=== PATIENT | female | born 1965 | race Caucasian/White ===

== ENCOUNTER → 2020-01-30 11:04 | Outpatient (CLI) | payer OTHER, SELFPAY ==
--- NOTE | ~2020-01-30 | DEXA_ITS ---
Bone Density Report Name: Martha Jackson Age: 54 Sex: Female Ethnicity: White Date of : 1965 Indication: postmenopausal; screening for osteoporosis; Referring Provider: HERNESTO OATES Study: Bone densitometry was performed. Exam Date: January 30, 2020 Accession number: [id number] Bone Density: Region BMD T-score Z-score Classification AP Spine (L1-L4) 1.065 0.2 1.1 Normal Femoral Neck (Left) 0.863 0.1 1.1 Normal Total Hip (Left) 1.095 1.3 1.9 Normal Femoral Neck (Right) 0.853 0.0 1.0 Normal Total Hip (Right) 1.011 0.6 1.2 Normal Total Hip Mean 1.053 1.0 1.6 Normal World Health Organization criteria for BMD impression classify patients as: Normal (T-score at or above -1.0), Osteopenia (T-score between -1.0 and -2.5), or Osteoporosis (T-score at or below -2.5). 10-year Fracture Risk: FRAX not reported because: All T-scores for Spine Total, Hip Total, Femoral Neck at or above -1.0 Clinical Information Provided by Patient: Smokes Has used the following medications: Vitamin D Patient maximum height was 67 Menopause Age: 53 Drinks caffeinated beverages Onset of menses at age 13 Number of children 2 Impression: The patient has normal bone mass. The patient has risk factors, including: smoking. Discussion: BONE DENSITY IS ABOVE THE MINIMUM DESIRABLE LEVEL AT ALL SKELETAL SITES TESTED. This patient?s bone mineral density is above the minimum desirable level (T-score -1.0 or better) at all sites measured. The patient should follow a healthful lifestyle (good nutrition with adequate calcium and vitamin D, and appropriate weight-bearing exercise). Follow-Up: Consider repeating this study in 5 years or sooner if there is some new clinical indication. Reported by: [facility] on 01/30/2020 11:37:00 AM. Reviewed, dictated and finalized at location AMaryan LYLE
--- NOTE | ~2020-01-30 | MM_ITS ---
EXAMINATION: MM screening contra [facility] BI w serafin HISTORY: Screening mammogram TECHNIQUE: Craniocaudal and mediolateral oblique 3-D tomosynthesis images were obtained and synthetic 2-D images were generated. CAD analysis was submitted and interpreted. COMPARISON: 09/13/2018, 08/20/2017, 04/15/2015 BREAST PARENCHYMAL COMPOSITION: There are scattered areas of fibroglandular density. FINDINGS: There is no evidence of suspicious mass, calcification, or architectural distortion to sugg est malignancy in either breast. There has been no suspicious interval change. IMPRESSION: 1. No mammographic evidence of malignancy. 2. Recommend routine screening mammography in one year. BI-RADS Category 1: Negative Reviewed, dictated and finalized at location A.
== END ==
PROVIDERS: PCP Internal Medicine; Referring Provider Nurse Practitioner Family; Visit Provider Obstetrics & Gynecology Gynecology
DX: Z12.31 Encounter for screening mammogram for malignant neoplasm of breast (principal); Z13.820 Encounter for screening for osteoporosis; Z78.0 Asymptomatic menopausal state
CPT/HCPCS: 77063; 77067; 77080

== ENCOUNTER 2020-03-16 09:26 | Outpatient (CLI) | payer OTHER, SELFPAY ==
--- NOTE | ~2020-03-16 | US_ITS ---
EXAMINATION: US abdomen complete EXAM DATE: 03/16/2020 10:17 INDICATION: R10.9 - Unspecified abdominal pain abdominal pain , LLQ. TECHNIQUE: Multiple grayscale and Doppler images of the complete abdomen were obtained (by a technolo gist who performed the scan) and subsequently reviewed. There is no prior study for comparison. FINDINGS: The abdominal aorta is normal in caliber. Visualized portion IVC is patent. The pancreatic head a nd body are normal in appearance. The pancreatic tail is not visualized. The liver has normal echogenicity and contour. There is a 1.4 cm cyst in the liver inferiorly. Ther e is no evidence of intrahepatic biliary duct dilation. Portal venous flow was seen in the hepatoped al, normal direction and has normal Doppler waveform. Common bile duct measures 3 mm, which is normal. The gallbladder wall is normal in thickness, with ex pected amount of distention. No sonographic evidence of pericholecystic fluid. There is a 13 mm gall stone. Technologist performing exam reports patient did not demonstrate sonographic Jennings's sign. P phill note that this sign is less reliable in patients who have received pain medication. Right kidney: There is normal contour and echogenicity. It measures 12.2 x 4.6 x 4.1 centimeters. There are no focal renal lesions identified. There is no hydronephrosis. Left kidney: There is normal contour and echogenicity. It measures 11.9 x 5.1 x 5.5 centimeters. T here are no focal renal lesions identified. There is no hydronephrosis. The spleen measures 9.7 centimeters and is morphologically normal. Scanning performed in the left lower quadrant, location of patient's pain which demonstrated soft tis leeroy structure measuring 1.3 x 1.9 x 1.4 cm which technologist believed to be left ovary. No evidence of abdominal wall defect in this location. IMPRESSION: Unremarkable complete abdominal ultrasound exam. Reviewed, dictated and finalized at location A. 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
== END 2020-03-16 09:27 | disposition home or self-care (01) ==
PROVIDERS: PCP Internal Medicine; Visit Provider Nurse Practitioner
DX: R10.9 Unspecified abdominal pain (principal)
CPT/HCPCS: 76700

== ENCOUNTER 2020-07-10 15:12 | Emergency (ER) | payer OTHER, SELFPAY ==
[2020-07-10] VITALS (7 sets, daily range): BP systolic 113–138; BP diastolic 76–99; PULSE 75–90; RESP 15–20; TEMP 36.6; O2SAT 88–100
--- NOTE | ~2020-07-10 | CT_ITS ---
EXAMINATION: CT abdomen pelvis w con DATE: 07/10/2020 15:55 INDICATION: Right upper quadrant pain TECHNIQUE: Computed tomography (CT) of the abdomen and pelvis was performed without intravenous contr ast. The dose-length product was 728.69 mGy-cm. Automated exposure control and iterative reconstructi on technique were employed. COMPARISON: None. FINDINGS: Lung bases are unremarkable. Heart size normal. No pleural or pericardial effusion. There a re multiple low-density lesions in the liver, likely benign cysts. The spleen, pancreas, adrenal glan ds and kidneys are unremarkable. Gallbladder is contracted with enhancement and surrounding perichole cystic fluid, suspicious for cholecystitis. Nonobstructive bowel gas pattern. Normal appendix. IUD pr esent in the endometrium. No free air. No lymphadenopathy. No significant vascular abnormality. Mild lower lumbar spondylosis. IMPRESSION: 1. Enhancing gallbladder wall with pericholecystic fluid, suspicious for cholecystitis. Correlate cli nically. Reviewed, dictated and finalized at location A. 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 Enhancing gallbladder wall with pericholecystic fluid, suspicious for cholec ystitis. Correlate clinically.
--- NOTE | ~2020-07-10 | XR_ITS ---
EXAMINATION: XR chest 2V 07/10/2020 15:39 INDICATION: Left-sided chest pain PROCEDURE: PA and lateral views of the chest COMPARISON: No prior studies for comparison. FINDINGS: The lungs are clear. The cardiomediastinal silhouette is within normal limits. There are no pleural effusions. There is no pneumothorax suspected. IMPRESSION: 1: NO ACUTE CARDIOPULMONARY DISEASE. Reviewed, dictated and finalized at location A. L TILE SETTER
--- NOTE | 2020-07-10 15:20 | ED.CHESTPAIN ---
HPI - Chest Pain General Chief Complaint: Chest Pain Stated Complaint: chest pain Time Seen by Provider: 07/10/20 15:19 History of Present Illness HPI narrative: 55 yo female with no active medical problems presents to the ED for chest and abdominal pain. She had 2 episodes of severe RUQ pain radiating into the chest and back. The first was last night and the pain returned this morning. Currently only 3/10. She has never had this pain before. No SOB, fever, cough, vomiting, diarrhea. She has had no previous surgery. Related Data Home Medications Medication Instructions Recorded Confirmed hydroxyzine HCl 25 mg tablet 25 mg PO BID PRN 01/28/20 05/05/20 cholecalciferol (vitamin D3) 25 25 mcg PO DAILY 05/05/20 05/05/20 mcg (1,000 unit) capsule Allergies Allergy/AdvReac Type Severity Reaction Status Date / Time adhesive Allergy Intermediate BANDAIDS, Verified 05/05/20 12:59 DENIES LATEX, USES LATEX GLOVES REDNESS WITH PALACIOS Review of Systems Review of Systems: All systems reviewed & are unremarkable except as noted in HPI and below Constitutional: Constitutional: Denies fever(s) and Denies weakness Eyes: Eyes: Reports no additional eye complaints ENT: Reports system reviewed and no additional complaints, except as documented Cardiovascular: Cardiovascular: Reports chest pain Respiratory: Respiratory: Denies dyspnea Gastrointestinal: Gastrointestinal: Reports abdominal pain, Denies diarrhea, Reports nausea and Denies vomiting Genitourinary: Genitourinary: Denies hematuria and Denies dysuria Musculoskeletal: Musculoskeletal: Reports back pain Neurologic: Reports system reviewed and no additional complaints, except as documented [facility] Past Medical History Medical History Chicken pox Hyperlipidemia Mumps Vitamin D deficiency Surgical History Surgical History [place] teeth extracted Family History Family History Father Family history of elevated blood lipids Acute myocardial infarction Social History Social History Smoking packs per day: 0.5 Smoking cigarettes per day: 10.0 Smoking status: Current every day smoker Second hand tobacco smoke exposure: Yes Alcohol intake: current Exam Const: General: healthy appearing, no acute distress and alert Orientation/consciousness: patient oriented x3 HENMT: Head: normal to inspection Neck: Neck: normal visual inspection and no lymphadenopathy Chest: Chest palpation & inspection: no tenderness Resp: Effort & Inspection: normal respiratory effort Auscultation: clear to auscultation bilaterally, no rales, no rhonchi and no wheezes Cardio: Jugular venous distension: no JVD Rate: regular rate Rhythm: regular rhythm Heart sounds: no murmurs GI: Inspection: non-distended GI Palp: Yes Soft to palpation, Yes Tenderness to palpation present (GI) (RUQ ), No Guarding due to palpation present (GI) and No Rebound tenderness present Skin: General skin exam: normal color Neuro: General: patient oriented x3, moves all extremities, no focal motor deficits and CN's II-XI intact bilaterally Speech: normal speech Extrem: General: no edema Psych: Appearance: well kempt Affect: normal affect Course Vital Signs Vital signs: Vital Signs Temperature 36.6 C 07/10/20 15:18 Pulse Rate 89 07/10/20 15:18 Respiratory Rate 17 07/10/20 15:18 Blood Pressure 113/99 H 07/10/20 15:18 Pulse Oximetry 97 07/10/20 15:18 Temperature 36.6 C 07/10/20 15:18 Pulse Rate 84 07/10/20 17:40 Respiratory Rate 16 07/10/20 17:40 Blood Pressure 138/76 07/10/20 17:40 Pulse Oximetry 99 07/10/20 17:40 MDM - Chest Pain MDM Narrative Medical decision making narrative: symptoms most
--- NOTE | 2020-07-10 15:22 | ECG_ITS ---
Measurements Intervals [place] Rate: 86 P: 71 W[place]: 137 QRS: 66 QRSD: 93 T: 53 QT: 326 QTc: 391 Interpretive Statements SINUS RHYTHM BORDERLINE ST-T WAVE ABNORMALITY- DIFFUSE LEADS BASELINE ARTIFACT- I, II, III, AVR, AVL, AVF BORDERLINE ECG Electronically Signed On 07-10-2020 15:50:16 OUTREACH CONSULTANT by Joni Glasgow D.O.
[2020-07-10 15:32] LABS: Basophils Absolute Auto 0.1 K/mm3 (0.0-0.1); Basophils Percent Auto 0.8 % (0.2-1.2); Eosinophils Absolute Auto 0.2 K/mm3 (0-0.3); Eosinophils Percent Auto 2.7 % (0-4.4); Hematocrit 45.9 % (37.0-47.0); Hemoglobin 15.8 g/dL (12.0-15.0); Immature Granulocyte Absolute 0.01 K/mm3 (0.00-0.031); Immature Granulocyte Percent A 0.1 % (0-0.5); Lymphocytes Absolute Auto 2.94 K/mm3 (0.9-3.2); Lymphocytes Percent Auto 34.8 % (18.3-44.2); Mean Corpuscular HGB Conc 34.4 g/dl (32-36); Mean Corpuscular Hemoglobin 32.6 pg (26-34); Mean Corpuscular Volume 94.8 fl (80-100); Mean Platelet Volume 9.6 fl (7.4-10.4); Monocytes Absolute Auto 0.4 K/mm3 (0.1-0.6); Monocytes Percent Auto 5.2 % (2.6-8.5); Neutrophils Absolute Auto 4.8 K/mm3 (1.3-6.7); Neutrophils Percent Auto 56.4 % (45.5-73.1); Platelet Count Result 285 k/mm3 (150-375); Red Blood Count 4.84 M/mm3 (4.2-5.4); Red Cell Distribution Width 12.3 % (11.5-14.5); White Blood Count 8.4 K/mm3 (4.5-10.0)
[2020-07-10 15:42] LABS: INR 0.9; Prothrombin Time 12.6 Seconds (11.1-14.7)
[2020-07-10 15:43] LABS: Partial Thromboplastin Time 28.7 SECONDS (22.3-36.8)
[2020-07-10 15:45] LABS: Anion Gap 5 mmol/L (8-16); Blood Urea Nitrogen 9 mg/dL (7-17); Calcium 9.5 mg/dL (8.4-10.2); Carbon Dioxide 31 mmol/L (22-30); Chloride 107 mmol/L (98-107); Estimated Glomerular Filt Rate > 60; Glucose 93 mg/dL (65-105); Potassium 3.8 mmol/L (3.4-5.0); Sodium 143 mmol/L (137-145)
[2020-07-10 15:58] LABS: Troponin I < 0.012 ng/mL (0.000-0.034)
[2020-07-10 16:13] LABS: Alanine Aminotransferase 16 U/L (4-35); Albumin Level 4.4 g/dL (3.5-5.1); Alkaline Phosphatase 68 U/L (38-126); Aspartate Amino Transferase 23 U/L (14-36); Bilirubin,Total 0.4 mg/dL (0.2-1.3); Lipase 175 U/L (23-300)
[2020-07-12 01:20] LABS: Estimated Glomerular Filt Rate > 60
== END 2020-07-10 17:51 | disposition home or self-care (01) ==
PROVIDERS: Emergency Provider Emergency Medicine; PCP Internal Medicine
DX: E78.5 Hyperlipidemia, unspecified (principal); E55.9 Vitamin D deficiency, unspecified; F17.210 Nicotine dependence, cigarettes, uncomplicated; K81.0 Acute cholecystitis; R94.31 Abnormal electrocardiogram [ECG] [EKG]
CPT/HCPCS: 36415; 71046; 74177; 80048; 80076; 83690; 84484; 85025; 85610; 85730; 93005; 99284; Q9967

== ENCOUNTER → 2020-07-27 00:30 | Outpatient (CLI) | payer OTHER, SELFPAY ==
[2020-07-27 18:31] LABS: SARS-CoV-2 RNA PCR Negative
== END ==
PROVIDERS: PCP Internal Medicine; Visit Provider Surgery
DX: Z01.812 Encounter for preprocedural laboratory examination (principal); Z20.822 Contact with and (suspected) exposure to COVID-19
CPT/HCPCS: C9803; U0003; U0005

== ENCOUNTER 2020-07-27 08:28 | Outpatient (CLI) | payer OTHER, SELFPAY ==
[2020-07-27 09:36] LABS: Alanine Aminotransferase 15 U/L (4-35); Albumin Level 4.4 g/dL (3.5-5.1); Alkaline Phosphatase 63 U/L (38-126); Amylase 82 U/L (30-110); Aspartate Amino Transferase 21 U/L (14-36); Bilirubin,Total 0.3 mg/dL (0.2-1.3); Lipase 185 U/L (23-300)
== END 2020-07-27 08:29 | disposition home or self-care (01) ==
PROVIDERS: PCP Internal Medicine; Visit Provider Surgery
DX: Z01.812 Encounter for preprocedural laboratory examination (principal); K80.10 Calculus of gallbladder with chronic cholecystitis without obstruction
CPT/HCPCS: 36415; 80076; 82150; 83690; 86850; 86900; 86901

== ENCOUNTER 2020-07-30 04:18 | Day surgery (SDC) | payer OTHER, SELFPAY ==
[2020-07-20 09:22] VITALS: BMI 29.3
[2020-07-30] VITALS (10 sets, daily range): BP systolic 91–115; BP diastolic 45–65; PULSE 64–90; RESP 14–20; TEMP 36.1–36.5; O2SAT 99–100
--- NOTE | 2020-07-30 06:35 | WPDHPUPDATE1 ---
History and Physical Update Update Date/Time: 07/30/20 06:35 History and Physical has been reviewed, including an updated exam of the patient. There are NO changes in the patient's condition. Risks, benefits, and alternatives have been discussed and questions answered. Patient agrees to proceed with procedure.
--- NOTE | 2020-07-30 08:17 | ECG_ITS ---
Measurements Intervals [place] Rate: 85 P: NC: 0 QRS: 65 QRSD: 93 T: 55 QT: 304 QTc: 363 Interpretive Statements ECTOPIC ATRIAL RHYTHM CHANGES TO SINUS RHYTHM NONSPECIFIC T-WAVE ABNORMALITY- HIGH LATERAL LEADS BASELINE ARTIFACT- I, II, III, AVR, AVL, AVF ABNORMAL ECG Electronically Signed On 07-30-2020 9:31:17 CDT by Joni Glasgow D.O.
[2020-07-30] MEDS: LACTATED RINGERS 1,000 ML 30 ML IV CONT ×2 (08:35→11:04)
[2020-07-30] MEDS: KETOROLAC 15 MG/ML VIAL (*BKC) IV PUSH (08:39)
[2020-07-30] MEDS: ACETAMINOPHEN 500 MG TABLET 1000 MG PO (08:40)
--- NOTE | 2020-07-30 09:32 | WPDANESEPPF ---
Anes - Initial Pre Proc Eval Procedure: Operation Date: 07/30/20 10:00 Proposed Procedures p Laparoscopic Cholecystectomy - Owen Orozco MD Date/Time: 07/30/20 09:32 Surgeon: Owen Orozco MD Pre Op Diagnosis: chronic cholecystitis with stones Patient Data Age: 55 Gender: F Height: 5 ft 7 in Weight: 85.4 kg Last Vital Signs Temp 36.5 C 07/30/20 08:50 Pulse 84 07/30/20 08:50 Resp 20 07/30/20 08:50 BP 112/65 07/30/20 08:50 Pulse Ox 100 07/30/20 08:50 Allergies Allergy/AdvReac Type Severity Reaction Status Date / Time adhesive Allergy Intermediate BANDAIDS, Verified 07/30/20 08:48 DENIES LATEX, USES LATEX GLOVES REDNESS WITH PALACIOS Home Medications Medication Instructions Recorded Confirmed Type cholecalciferol (vitamin D3) 25 25 mcg PO DAILY 05/05/20 07/30/20 History mcg (1,000 unit) capsule hydrocodone-acetaminophen 1 tablet PO Q6H PRN #10 tablet 07/10/20 07/20/20 Rx trazodone 50 mg tablet 50 mg PO QHS PRN 07/12/20 07/20/20 History Patient hx anesthesia problems: none Family hx anesthesia problems: none PMFSH Past Medical History Medical History Chicken pox Hyperlipidemia Mumps Vitamin D deficiency Surgical History Surgical History [place] teeth extracted Family History Family History Father Family history of elevated blood lipids Acute myocardial infarction Heart attack Sibling Autoimmune disease Grandparent Cerebrovascular accident Social History Social History Smoking packs per day: 0.5 Smoking cigarettes per day: 10.0 Years smoked: 30 Smoking pack-years: 15.00 Smoking status: Current every day smoker Tobacco type: cigarettes Second hand tobacco smoke exposure: Yes Alcohol intake: current Alcohol use details: 2-3 GLASSES/MONTH Substance use: never Substance use type: does not use Living arrangements: with family Gender identity (if verbalized by the patient): Female Spiritual care concerns: No Anes - Eval Final PreProcedure Day of Procedure 07/30/20 09:32 Patient weight: overweight Heart: regular rate and rhythm Lungs: decreased breath sounds Airway: Mallampati scale class II Neurological: alert and oriented Last oral intake: >/= 8 hours ASA classification: III Emergent: no Anesthetic plan: proceed Anesthesia type and monitoring: general ETT and standard monitoring Informed Consent: The patient's anesthetic plan and its attendant risks and benefits were discussed with the patient/family/POA. Questions were solicited and answers provided to the satisfaction of the patient/family/POA.
[2020-07-30] MEDS: ceFAZolin 2 GM/D5W 50 ML 2 GM/50 ML BAG IVPB (10:09)
[2020-07-30] MEDS: BUPIVACAINE/EPINEPHRINE 0.5% 30 ML VIAL INFILTRATE (10:40)
--- NOTE | 2020-07-30 11:14 | PM.PROC ---
Procedure Note - Detailed Date of procedure: 07/30/20 Pre-op diagnosis: chronic cholecystitis with stones Chronic cholecystitis, cholelithiasis Post-op diagnosis: same Procedure performed: Laparoscopic cholecystectomy Description of procedure: The patient was taken to surgery and induced into general anesthesia. The abdomen was prepped and draped. Trocars were placed in the usual fashion using 0.5% Marcaine with epinephrine and applied Medical optical trocars. A 5 millimeter camera was used. The gallbladder was retracted anterosuperiorly. Adhesions to the gallbladder were taken down so that the cholecystohepatic triangle was exposed. Traction was placed on the infundibulum. The cystic duct and cystic artery were dissected out very clearly. The gallbladder was dissected off the liver at its lower 3rd. Critical view was achieved. We securely clipped and divided the cystic duct and cystic artery. The gallbladder was then further retracted so that the peritoneal attachments to the liver could be divided. Once the gallbladder was freed entirely, it was placed in an Endo-Catch bag and retrieved through the 10 11 epigastric trocar site. The epigastric trocar was then replaced. We reviewed the right upper quadrant. All looked good with no evidence of bleeding or bile leakage. We evacuated CO2 and removed the trocar sleeves. Skin wounds were closed with subcuticular 4 O Monocryl skin suture. The wounds were dressed with Exofin surgical adhesive. Patient was awakened and taken to recovery in good condition. Sponge and needle counts were correct x2. Anesthesia: GETA and local (0.5% Marcaine with epinephrine) Surgeon: Owen Orozco MD Flanging Machine Operator: Richard JAIN Estimated blood loss (mL): 5 Drains: No Packing: No Pathology: yes (Gallbladder) Complications: None Condition: stable Disposition: PACU Findings: Chronic inflammation, gallstones noted. No biliary ductal dilatation, no liver abnormalities.
[2020-07-30] MEDS: fentaNYL CITRATE INJ (*CRX) 100 MCG/2 ML VIAL 25 MCG IV PUSH ×4 (11:26→11:49)
== END 2020-07-30 13:47 | disposition home or self-care (01) ==
PROVIDERS: PCP Internal Medicine; Visit Provider Surgery
PROC: 0FT44ZZ Resection of Gallbladder, Percutaneous Endoscopic Approach (ICD-10-PCS; CPT 47562; principal; 2020-07-30 10:00)
DX: K81.1 Chronic cholecystitis (principal); E78.5 Hyperlipidemia, unspecified; E55.9 Vitamin D deficiency, unspecified; Z86.19 Personal history of other infectious and parasitic diseases; F17.210 Nicotine dependence, cigarettes, uncomplicated
CPT/HCPCS: 47562; 36415; 80076; 82150; 83690; 86850; 86900; 86901; 88304; 93005; A9270; C1713; C9803; J0690; J1100; J1170; J1885; J2250; J2370; J2405; J2704; J2710; J3010; J7030; J7120; U0003; U0005

== ENCOUNTER → 2021-01-31 15:01 | Outpatient (CLI) | payer OTHER, SELFPAY ==
--- NOTE | ~2021-01-31 | MM_ITS ---
EXAMINATION: MM screening [facility] BI w serafin HISTORY: Screening mammogram TECHNIQUE: Craniocaudal and mediolateral oblique 3-D tomosynthesis images were obtained and synthetic 2-D images were generated. CAD analysis was submitted and interpreted. COMPARISON: 01/30/2020, 09/13/2018, 08/20/2017 BREAST PARENCHYMAL COMPOSITION: There are scattered areas of fibroglandular density. FINDINGS: There is no evidence of suspicious mass, calcification, or architectural distortion to sugg est malignancy in either breast. There has been no suspicious interval change. IMPRESSION: 1. No mammographic evidence of malignancy. 2. Recommend routine screening mammography in one year. BI-RADS Category 1: Negative Reviewed, dictated and finalized at location A.
== END ==
PROVIDERS: PCP Internal Medicine; Visit Provider Nurse Practitioner
DX: Z12.31 Encounter for screening mammogram for malignant neoplasm of breast (principal)
CPT/HCPCS: 77063; 77067

== ENCOUNTER 2021-08-18 14:01 | Outpatient (CLI) | payer OTHER, SELFPAY ==
--- NOTE | ~2021-08-18 | XR_ITS ---
EXAMINATION: XR knee RT min 4V DATE: 08/18/2021 14:32 INDICATION: Right knee pain. TECHNIQUE: 4 views of right knee including standing views were obtained. COMPARISON: None. FINDINGS: Bone alignment is normal. No fracture. There is mild osteoarthritis of medial and patellofe moral compartments characterized by tiny osteophytes. No joint space narrowing. No knee joint effusio n. IMPRESSION: 1. Mild right knee osteoarthritis. Reviewed, dictated and finalized at location B.
== END 2021-08-18 14:02 | disposition home or self-care (01) ==
PROVIDERS: PCP Internal Medicine; Visit Provider Nurse Practitioner
DX: M17.11 Unilateral primary osteoarthritis, right knee (principal)
CPT/HCPCS: 73564

== ENCOUNTER 2021-09-07 10:03 | Outpatient (CLI) | payer OTHER, SELFPAY ==
--- NOTE | 2021-09-07 11:15 | NEURO_ITS ---
Impression: # Complains of pain in elbow. # No Carpal Tunnel Syndrome. # Left ulnar neuropathy across the elbow. # Normal needle/EMG exam. # Clinical correlation recommended. Nerve Conduction Studies Anti Sensory Summary Table Stim Site NR Peak (ms) P-T Amp (?V) Site1 Site2 Delta-P (ms) Dist (cm) Delta (m/s) Left Median Anti Sensory (2-3nd Digit) Wrist 2.4 83.8 Wrist 2-3nd Digit 2.4 14.0 58 Wrist 2.5 78.2 Wrist 2-3nd Digit 2.4 14.0 58 Right Median Anti Sensory (2-3nd Digit) Wrist 2.5 93.3 Wrist 2-3nd Digit 2.5 14.0 56 Wrist 2.3 94.0 Wrist 2-3nd Digit 2.5 14.0 56 Left Radial Anti Sensory (Base 1st Digit) Wrist 2.0 24.6 Wrist Base 1st Digit 2.0 0.0 Right Radial Anti Sensory (Base 1st Digit) Wrist 1.9 35.3 Wrist Base 1st Digit 1.9 0.0 Left Ulnar Anti Sensory (5th Digit) Wrist 2.4 64.5 Wrist 5th Digit 2.4 14.0 58 Right Ulnar Anti Sensory (5th Digit) Wrist 2.1 64.3 Wrist 5th Digit 2.1 14.0 67 Motor Summary Table Stim Site NR Onset (ms) O-P Amp (mV) Site1 Site2 Delta-0 (ms) Dist (cm) Delta (m/s) Left Median Motor (Abd Poll Brev) Wrist 2.7 4.8 Elbow Wrist 4.6 28.0 61 Elbow 7.3 3.0 Right Median Motor (Abd Poll Brev) Wrist 2.8 5.3 Elbow Wrist 4.2 25.0 60 Elbow 7.0 3.7 Left Ulnar Motor (Abd Dig Minimi) Wrist 2.2 5.9 A Elbow Wrist 5.5 28.0 51 A Elbow 7.7 4.1 B Elbow Wrist 4.1 23.0 56 B Elbow 6.3 4.9 Right Ulnar Motor (Abd Dig Minimi) Wrist 2.2 6.1 A Elbow Wrist 4.8 28.0 58 A Elbow 7.0 4.5 F Wave Studies NR F-Lat (ms) L-R F-Lat (ms) Left Median (Mrkrs) (Abd Poll Brev) 24.59 1.32 Right Median (Mrkrs) (Abd Poll Brev) 25.91 1.32 Left Ulnar (Mrkrs) (Abd Dig Min) 25.36 1.17 Right Ulnar (Mrkrs) (Abd Dig Min) 26.53 1.17 EMG Side Muscle Nerve Root Ins Act Fibs Amp Dur Recrt Comment Right 1stDorInt Ulnar C8-T1 Nml Nml Nml Nml Nml Right Ext Indicis Radial (Post Int) C7-8 Nml Nml Nml Nml Nml Right Ext Digitorum Radial (Post Int) C7-8 Nml Nml Nml Nml Nml Right BrachioRad Radial C5-6 Nml Nml Nml Nml Nml Right PronatorTeres Median C6-7 Nml Nml Nml Nml Nml Right Abd Poll Brev Median C8-T1 Nml Nml Nml Nml Nml Left 1stDorInt Ulnar C8-T1 Nml Nml Nml Nml Nml Left Ext Indicis Radial (Post Int) C7-8 Nml Nml Nml Nml Nml Left Ext Digitorum Radial (Post Int) C7-8 Nml Nml Nml Nml Nml Left BrachioRad Radial C5-6 Nml Nml Nml Nml Nml Left PronatorTeres Median C6-7 Nml Nml Nml Nml Nml Left Abd Poll Brev Median C8-T1 Nml Nml Nml Nml Nml Right ABD Dig Min Ulnar C8-T1 Nml Nml Nml Nml Nml Left ABD Dig Min Ulnar C8-T1 Nml Nml Nml Nml Nml MTDD
== END 2021-09-07 10:04 | disposition home or self-care (01) ==
LOC: ANHNEURO 10:06
PROVIDERS: PCP Internal Medicine; Visit Provider Nurse Practitioner
DX: M25.529 Pain in unspecified elbow (principal); G89.29 Other chronic pain; G56.22 Lesion of ulnar nerve, left upper limb
CPT/HCPCS: 95886; 95911

== ENCOUNTER → 2022-02-02 07:14 | Outpatient (CLI) | payer OTHER, SELFPAY ==
--- NOTE | ~2022-02-02 | MM_ITS ---
EXAMINATION: MM screening [facility] BI w serafin HISTORY: Screening mammogram TECHNIQUE: Craniocaudal and mediolateral oblique 3-D tomosynthesis images were obtained and synthetic 2-D images were generated. CAD analysis was submitted and interpreted. COMPARISON: 01/31/2021, 01/30/2020, 09/13/2018 BREAST PARENCHYMAL COMPOSITION: There are scattered areas of fibroglandular density. FINDINGS: No suspicious mass, calcification, or architectural distortion are identified in either liliana ast to suggest malignancy. There has been no suspicious interval change. IMPRESSION: 1. No mammographic evidence of malignancy. 2. Recommend routine screening mammography in one year. BI-RADS Category 1: Negative Reviewed, dictated and finalized at location B.
== END ==
PROVIDERS: PCP Internal Medicine; Visit Provider Nurse Practitioner
DX: Z12.31 Encounter for screening mammogram for malignant neoplasm of breast (principal)
CPT/HCPCS: 77063; 77067

== ENCOUNTER 2022-05-03 10:24 | Outpatient (CLI) | payer OTHER, SELFPAY ==
--- NOTE | ~2022-05-03 | CT_ITS ---
EXAMINATION: CT lung screening DATE: 05/03/2022 10:57 INDICATION: Personal history of nicotine dependence, current smoker with 30 pack year history TECHNIQUE: Computed tomography (CT) of the chest was performed without intravenous contrast. The dose -length product (DLP) was 163.51 mGy-cm. Automated exposure control and iterative reconstruction tech S[employer]bird were employed. COMPARISON: None FINDINGS: There is mild emphysema. The lungs are free of acute opacities. No pleural effusion or pneu mothorax. No pathologically enlarged thoracic lymph nodes are identified. The heart size is normal. T here is a small sliding hiatal hernia. There is mild thoracic spondylosis. There is an 11 mm cyst of the liver. IMPRESSION: 1. Lung-RADS category 1: Negative. Continue annual screening with noncontrast low-dose chest CT in 12 months. Reviewed, dictated and finalized at location A. IV THERAPY IMPRESSION: 1. Lung-RADS category 1: Negative. Continue annual screening with noncontrast l ow-dose chest CT in 12 months.
== END 2022-05-03 10:25 | disposition home or self-care (01) ==
LOC: ANHIMG 10:26
PROVIDERS: PCP Internal Medicine; Visit Provider Nurse Practitioner
DX: Z12.2 Encounter for screening for malignant neoplasm of respiratory organs (principal); F17.210 Nicotine dependence, cigarettes, uncomplicated
CPT/HCPCS: 71271

== ENCOUNTER → 2023-02-05 07:18 | Outpatient (CLI) | payer OTHER, SELFPAY ==
--- NOTE | ~2023-02-05 | MM_ITS ---
EXAMINATION: MM screening [facility] BI w serafin HISTORY: Screening mammogram TECHNIQUE: Craniocaudal and mediolateral oblique 3-D tomosynthesis images were obtained and synthetic 2-D images were generated. CAD analysis was submitted and interpreted. COMPARISON: 02/02/2022, 01/2021, 01/30/2020 bilateral screening mammogram examinations BREAST PARENCHYMAL COMPOSITION: The breasts are almost entirely fatty. FINDINGS: There is no evidence of suspicious mass, calcification, or architectural distortion to sugg est malignancy in either breast. There has been no suspicious interval change. IMPRESSION: 1. No mammographic evidence of malignancy. 2. Recommend routine screening mammography in one year. BI-RADS Category 1: Negative Reviewed, dictated and finalized at location A.
== END ==
PROVIDERS: PCP Nurse Practitioner; Visit Provider Nurse Practitioner
DX: Z12.31 Encounter for screening mammogram for malignant neoplasm of breast (principal)
CPT/HCPCS: 77063; 77067

== ENCOUNTER 2023-04-13 09:12 | Outpatient (CLI) | payer OTHER, SELFPAY ==
[2023-04-13 11:58] LABS: Basophils Absolute Auto 0.1 K/mm3 (0.0-0.1); Basophils Percent Auto 1.3 % (0.2-1.2); Eosinophils Absolute Auto 0.2 K/mm3 (0-0.3); Eosinophils Percent Auto 2.4 % (0-4.4); Hematocrit 47.6 % (37.0-47.0); Hemoglobin 15.3 g/dL (12.0-15.0); Immature Granulocyte Absolute 0.01 K/mm3 (0.00-0.031); Immature Granulocyte Percent A 0.2 % (0-0.5); Lymphocytes Absolute Auto 1.99 K/mm3 (0.9-3.2); Mean Corpuscular HGB Conc 32.1 g/dl (32-36); Mean Corpuscular Hemoglobin 31.7 pg (26-34); Mean Corpuscular Volume 98.6 fl (80-100); Mean Platelet Volume 10.4 fl (7.4-10.4); Monocytes Absolute Auto 0.4 K/mm3 (0.1-0.6); Monocytes Percent Auto 5.6 % (2.6-8.5); Neutrophils Absolute Auto 3.6 K/mm3 (1.3-6.7); Neutrophils Percent Auto 58.5 % (45.5-73.1); Platelet Count Result 316 k/mm3 (150-375); Red Blood Count 4.83 M/mm3 (4.2-5.4); Red Cell Distribution Width 12.7 % (11.5-14.5); White Blood Count 6.2 K/mm3 (4.5-10.0)
[2023-04-13 12:19] LABS: Alanine Aminotransferase 39 U/L (6-35); Albumin Level 4.6 g/dL (3.5-5.1); Alkaline Phosphatase 83 U/L (38-126); Anion Gap 5 mmol/L (8-16); Aspartate Amino Transferase 39 U/L (14-36); Bilirubin,Total 0.5 mg/dL (0.2-1.3); Blood Urea Nitrogen 10 mg/dL (7-17); Calcium 9.4 mg/dL (8.4-10.2); Carbon Dioxide 30 mmol/L (22-30); Chloride 107 mmol/L (98-107); Cholesterol 198 mg/dL (0-200); Estimated Glomerular Filt Rate > 60; Glucose 94 mg/dL (65-110); HDL Direct 58 mg/dL; Potassium 4.4 mmol/L (3.4-5.0); Sodium 142 mmol/L (137-145); Triglycerides 81 mg/dL (<150)
[2023-04-13 12:29] LABS: LDL Cholesterol Direct 105 mg/dL
[2023-04-13 12:42] LABS: Free T4 Free Thyroxine 0.65 ng/mL (0.78-2.19); Vitamin D 25 Hydroxy 20.5 ng/mL
[2023-04-19 15:11] LABS: Triiodothyronine T3 Free 3.1 pg/mL (2.3-4.2)
== END 2023-04-13 09:13 | disposition home or self-care (01) ==
LOC: ANHGOSHLAB 09:14
PROVIDERS: PCP Nurse Practitioner; Visit Provider Nurse Practitioner
DX: E55.9 Vitamin D deficiency, unspecified (principal); E78.5 Hyperlipidemia, unspecified; R79.89 Other specified abnormal findings of blood chemistry
CPT/HCPCS: 36415; 80053; 80061; 82306; 84439; 84443; 84481; 85025

== ENCOUNTER 2023-05-10 09:04 | Outpatient (CLI) | payer OTHER, SELFPAY ==
--- NOTE | ~2023-05-10 | CT_ITS ---
CT Scan of the Chest without Contrast: Clinical Indication: Lung cancer screening, personal history of nicotine dependence Technique: Contiguous sections were acquired throughout the chest without intravenous contrast. Dose reduction technique was used on this scan by utilizing automated exposure control and iterative recon struction technique. The dose-length product (DLP) was 176.96 mGy-cm. Findings: There is no evidence of any significant mediastinal, hilar or axillary lymphadenopathy. The mediastin al soft tissues appear normal. There is no evidence of pleural or pericardial effusion. The lungs are clear. No pulmonary nodules or infiltrates are noted. Images through the upper abdomen reveal no abnormalities. Impression: Lung RADS 1: Negative. 12 month follow-up screening CT advised. Reviewed, dictated and finalized at location . 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 12 month follow-up screening CT advised.
== END 2023-05-10 09:05 | disposition home or self-care (01) ==
LOC: ANHIMG 09:06
PROVIDERS: PCP Nurse Practitioner; Visit Provider Nurse Practitioner
DX: Z12.2 Encounter for screening for malignant neoplasm of respiratory organs (principal); Z87.891 Personal history of nicotine dependence
CPT/HCPCS: 71271

== ENCOUNTER 2024-02-07 07:14 | Outpatient (CLI) | payer OTHER, SELFPAY ==
--- NOTE | ~2024-02-07 | MM_ITS ---
EXAMINATION: MM screening [facility] BI w serafin HISTORY: Screening TECHNIQUE: Craniocaudal and mediolateral oblique 3-D tomosynthesis images were obtained and synthetic 2-D images were generated. CAD analysis was submitted and interpreted. COMPARISON: Comparison to multiple prior studies sequentially, with oldest reviewed study dated 08/20. BREAST PARENCHYMAL COMPOSITION: Not Dense. The breasts are almost entirely fatty. FINDINGS: There is no evidence of suspicious mass, calcification, or architectural distortion to sugg est malignancy in either breast. There has been no suspicious interval change. IMPRESSION: 1. No mammographic evidence of malignancy. 2. Recommend routine screening mammography in one year. BI-RADS Category 1: Negative Reviewed, dictated and finalized at location B.
== END 2024-02-07 07:15 | disposition home or self-care (01) ==
LOC: MICIMG 07:15
PROVIDERS: PCP Internal Medicine; Visit Provider Nurse Practitioner
DX: Z12.31 Encounter for screening mammogram for malignant neoplasm of breast (principal)
CPT/HCPCS: 77063; 77067

== ENCOUNTER 2024-06-19 15:21 | Outpatient (CLI) | payer OTHER, SELFPAY ==
--- NOTE | ~2024-06-19 | CT_ITS ---
EXAMINATION:CT lung screening DATE: 06/19/2024 16:07 INDICATION: Tobacco use. Current smoker with 30 pack year history. TECHNIQUE: Computed tomography (CT) of the chest was performed without intravenous contrast. Automate d exposure control and iterative reconstruction technique were employed. The dose-length product (DLP ) was 210.69 mGy-cm. COMPARISON: Chest CT 05/10/2023 FINDINGS: The lungs demonstrate minimal atelectasis. No pleural effusion. The heart size is normal. N o pericardial effusion. There are coronary artery calcifications. There is a small sliding hiatal her valorie. There is diffuse hepatic steatosis. There is 18 mm cyst in the liver. There are changes of chandra cystectomy. There is mild thoracic spondylosis. IMPRESSION: 1. Lung-RADS category 1: Negative. Continue annual screening with noncontrast low-dose chest CT in 12 months. Reviewed, dictated and finalized at location A. FILLER IMPRESSION: 1. Lung-RADS category 1: Negative. Continue annual screening with noncontrast l ow-dose chest CT in 12 months.
--- OUTSIDE RECORDS SUMMARY | 2024-06-19 15:29 | XMS_ITS | Referral Summary ---
Author Organization [facility] Address [address] [place] [address] Care Team Providers Care Manager Fixed Income Name Role Phone Adi Whitt DO Primary Care Provider +1- [phone] Allergies No known active allergies Medications hydrOXYzine (ATARAX) 10 mg tablet Take 10 mg by mouth 3 (three) times a day as needed for itching. Active ibuprofen (ADVIL,MOTRIN) 400 mg tablet Take by mouth every 6 (six) hours as needed for pain. Active traMADol (ULTRAM) 50 mg tablet Take 1-2 tablets (50-100 mg total) by mouth every 6 (six) hours as needed for pain 10 tablet 9 Active Additional Information Patient not taking.Reported on 10/26/2019 Active Problems No known active problems Social History Tobacco Use Types Packs/Day Years Used Date Smoking Tobacco: Never Smokeless Tobacco: Never Tobacco Cessation:Counseling Given: Not Answered Alcohol Use Standard Drinks/Week Comments Yes 0 (1 standard drink = 0.6 oz pur e alcohol) Comments No Sex and Gender Information Value Date Recorded Sex Assigned at Not on file Legal Sex Female 11:56 PM NURSE ASSISTANT Gender Identity Not on file Sexual Orientation Not on file Last Filed Vital Signs Vital Sign Reading Time Taken Comments Blood Pressure 117/76 03/18/2022 12:43 PM NURSE ASSISTANT Pulse 61 03/18/2022 12:43 PM NURSE ASSISTANT Temperature 36.8 C (98.3 F) 03/18/2022 12:43 PM NURSE ASSISTANT Respiratory Rate 16 03/18/2022 12:4 3 PM NURSE ASSISTANT Oxygen Saturation 98% 03/18/2022 12: 43 PM NURSE ASSISTANT Inhaled Oxygen Concentration - - Weight 97.5 kg (214 lb 14.4 oz) 022 12:43 PM NURSE ASSISTANT Height 170.2 cm (5' 7 ) 03/18/2022 12:4 3 PM NURSE ASSISTANT Body Mass Index 33.66 03/18/2022 12:43 PM NURSE ASSISTANT Plan of Treatment Not on file Insurance [facility] H[facility]PPO Address: [facility] [address] [place] [address] Care Teams Manager Fixed Income Relationship Specialty Start Date End Date Adi Whitt DO PCP - General Internal Medicine 02/22/18
--- OUTSIDE RECORDS SUMMARY | 2024-06-19 15:29 | XMS_ITS | Clinical Summary ---
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 Known health problems: none Known health problems: none Family History Medical History Relation Name Comments Heart attack Father Hyperlipidemia Father No Known Problems Other Relation Name Status Comments Father Other Social History Tobacco Use Types Packs/Day Years Used Date Smoking Tobacco: Never Smokeless Tobacco: Never Tobacco Cessation:Counseling Given: Not Answered Alcohol Use Standard Drinks/Week Comments Yes 0 (1 standard drink = 0.6 oz pur e alcohol) Comments No Sex and Gender Information Value Date Recorded Sex Assigned at Not on file Legal Sex Female 11:56 PM PLANT OPERATIONS COORDINATOR Gender Identity Not on file Sexual Orientation Not on file Obstetrics History Last Filed Vital Signs Vital Sign Reading Time Taken Comments Blood Pressure 117/76 03/18/2022 12:43 PM PLANT OPERATIONS COORDINATOR Pulse 61 03/18/2022 12:43 PM PLANT OPERATIONS COORDINATOR Temperature 36.8 C (98.3 F) 03/18/2022 12:43 PM PLANT OPERATIONS COORDINATOR Respiratory Rate 16 03/18/2022 12:4 3 PM PLANT OPERATIONS COORDINATOR Oxygen Saturation 98% 03/18/2022 12: 43 PM PLANT OPERATIONS COORDINATOR Inhaled Oxygen Concentration - - Weight 97.5 kg (214 lb 14.4 oz) 022 12:43 PM PLANT OPERATIONS COORDINATOR Height 170.2 cm (5' 7 ) 03/18/2022 12:4 3 PM PLANT OPERATIONS COORDINATOR Body Mass Index 33.66 03/18/2022 12:43 PM PLANT OPERATIONS COORDINATOR Plan of Treatment Health Maintenance Due Date Last Done Comments Breast Cancer Screening-Mammogram 1966 Cervical Cancer Screening 1966 Colon Cancer Screening-Colonoscopy 1966 Depression Screening 1966 Hepatitis C Screening 1966 Hepatitis B Screening 1984 Regular Well Visit/Exam 18-64 1984 Covid-19 Vaccine (4 - 2023-2 5 season) 2023 04/14/2021, 09/10/2020, 08/10/2020 Influenza Vaccine (#1) 2023 , 02/05/2019, 03/30/2018 DTaP/Tdap/Td Vaccine (2 - Td or Tdap) 02/05/2029 02/05/2019 Pneumococcal vaccine <65 Aged Out 04/13/2019 No longer eligible based on patient's age to complete this topic Zoster Vaccine Completed 04/13/2019, 02/05/2019 Insurance [facility] CHOICE PLUS [facility] HMO/PPO Address: [facility] [address] [place] [address] Care Teams Candy Catcher Relationship Specialty Start Date End Date Adi Whitt DO PCP - General Internal Medicine 02/22/18
== END 2024-06-19 15:22 | disposition home or self-care (01) ==
PROVIDERS: PCP Internal Medicine; Visit Provider Nurse Practitioner
DX: Z12.2 Encounter for screening for malignant neoplasm of respiratory organs (principal); F17.210 Nicotine dependence, cigarettes, uncomplicated
CPT/HCPCS: 71271

== ENCOUNTER 2024-06-26 08:22 | Outpatient (CLI) | payer OTHER, SELFPAY | END 2024-06-26 08:23 | disposition home or self-care (01) | PROVIDERS: PCP Nurse Practitioner; Visit Provider Nurse Practitioner | DX: R74.8 Abnormal levels of other serum enzymes (principal); K76.89 Other specified diseases of liver | CPT/HCPCS: 76705 ==

== ENCOUNTER 2025-02-02 15:27 | Outpatient (CLI) | payer OTHER, SELFPAY ==
--- NOTE | ~2025-02-02 | DEXA_ITS ---
Bone Density Report Name: EVAN NEUMANN Age: 59 Sex: Female Ethnicity: White Date of : 1965 Indication: postmenopausal; screening for osteoporosis; Referring Provider: Magdy, Gege Study: Bone densitometry was performed. Exam Date: February 02, 2025 Accession number: [id number] Bone Density: Region BMD T-score Z-score Classification AP Spine(L1, L2, L3) 0.977 -0.4 0.9 Normal Femoral Neck (Left) 0.859 0.1 1.3 Normal Total Hip (Left) 0.999 0.5 1.3 Normal Femoral Neck (Right) 0.834 -0.1 1.1 Normal Total Hip (Right) 0.989 0.4 1.3 Normal Total Hip Mean 0.994 0.5 1.3 Normal World Health Organization criteria for BMD impression classify patients as: Normal (T-score at or above -1.0), Osteopenia (T-score between -1.0 and -2.5), or Osteoporosis (T-score at or below -2.5). 10-year Fracture Risk: FRAX not reported because: All T-scores for Spine Total, Hip Total, Femoral Neck at or above -1.0 Previous Exams: -- Region Exam Age BMD T-score BMD Change BMD Change Date g/cm2 vs Baseline vs Previous -- AP Spine (L1-L3) 02/02/2025 59 0.977 -0.4 -6.0%* -6.0%* 01/30/2020 54 1.040 0.2 Total Hip(Left) 02/02/2025 59 0.999 0.5 -8.8%* -8.8%* 01/30/2020 54 1.095 1.3 Total Hip(Right) 02/02/2025 59 0.989 0.4 -2.2% -2.2% 01/30/2020 54 1.011 0.6 -- *Denotes significance at 95% confidence level, LSC for AP Spine = 0.022 g/cm2, LSC for Total Hip = 0.027 g/cm2 Clinical Information Provided by Patient: Has used the following medications: Vitamin D Patient maximum height was 67 Menopause Age: 53 No regular weight bearing exercise Drinks caffeinated beverages Onset of menses at age 13 Number of children 2 Impression: The patient has normal bone mass. The BMD for the AP Spine (L1-L3) decreased, changing by -6.0% since the last DXA exam. The BMD for the Total Hip(Left) decreased, changing by -8.8% since the last DXA exam. Discussion: BONE DENSITY IS ABOVE THE MINIMUM DESIRABLE LEVEL AT ALL SKELETAL SITES TESTED. This patient?s bone mineral density is above the minimum desirable level (T-score -1.0 or better) at all sites measured. The patient should follow a healthful lifestyle (good nutrition with adequate calcium and vitamin D, and appropriate weight-bearing exercise). Follow-Up: Consider repeating this study in 3 to 4 years to reassess this patient's status, or sooner if there is some new clinical indication. Reported by: INES on 02/02/2025 4:16:00 PM. Reviewed, dictated and finalized at location A.
== END 2025-02-02 15:28 | disposition home or self-care (01) ==
PROVIDERS: PCP Nurse Practitioner; Visit Provider Nurse Practitioner
DX: Z78.0 Asymptomatic menopausal state (principal); Z13.820 Encounter for screening for osteoporosis
CPT/HCPCS: 77080

== ENCOUNTER 2025-02-16 07:39 | Outpatient (CLI) | payer OTHER, SELFPAY ==
--- NOTE | ~2025-02-16 | MM_ITS ---
EXAMINATION: MM screening jas BI w serafin HISTORY: Screening TECHNIQUE: Craniocaudal and mediolateral oblique 3-D tomosynthesis images were obtained and synthetic 2-D images were generated. CAD analysis was submitted and interpreted. COMPARISON: Comparison to multiple prior studies sequentially, with oldest reviewed study dated , 01/31/2021 BREAST PARENCHYMAL COMPOSITION: The breasts are almost entirely fatty. FINDINGS: There is no evidence of suspicious mass, calcification, or architectural distortion to suggest malignancy in either breast. IMPRESSION: 1. No mammographic evidence of malignancy. 2. Recommend routine screening mammography in one year. BI-RADS Category 1: Negative Reviewed, dictated and finalized at location B.
== END 2025-02-16 07:40 | disposition home or self-care (01) ==
LOC: MICIMG 07:39
PROVIDERS: PCP Nurse Practitioner; Visit Provider Nurse Practitioner
DX: Z12.31 Encounter for screening mammogram for malignant neoplasm of breast (principal)
CPT/HCPCS: 77063; 77067